=== PATIENT | female | born 1980 | race Caucasian/White ===

== ENCOUNTER → 2018-07-03 18:52 | Outpatient (CLI) | payer OTHER, SELFPAY ==
--- NOTE | 2018-07-03 18:56 | DI.RAD.S_ITS ---
PROCEDURE: XR HAND RT MIN 3V INDICATIONS: hyperextension of 4th and 5th digit TECHNIQUE: 3 views of the hand(s) acquired. COMPARISON: None. FINDINGS: Bones: No fractures or dislocations. Carpal bones are normally aligned. No suspicious bony lesions. Soft tissues: No suspicious soft tissue calcifications. IMPRESSION: No visualized acute fracture or dislocation. However, if clinical concern and/or pain persist, short interval imaging followup in 7-10 days is recommended, as occult injury cannot be definitively excluded. Dictated by: Rosemarie Samuels M.D. on 07/03/2018 at 19:20 Approved by: Rosemarie Samuels M.D. on 07/03/2018 at 19:23
== END ==
PROVIDERS: Visit Provider Physician Assistant
DX: M79.644 Pain in right finger(s) (principal)
CPT/HCPCS: 73130

== ENCOUNTER → 2018-08-14 11:35 | Outpatient (CLI) | payer OTHER, SELFPAY | PROVIDERS: Visit Provider Physician Assistant | DX: J02.9 Acute pharyngitis, unspecified (principal) | CPT/HCPCS: 87070 ==

== ENCOUNTER 2018-10-23 12:20 | Day surgery (SDC) | payer OTHER, SELFPAY ==
--- NOTE | 2018-10-23 | PATH_ITS ---
[facility] Accession Number: [id number] . 01 Material submitted: . PART A: CECAL POLYP PART B: HEPATIC FLEXURE POLYP PART C: TRANSVERSE POLYP @ 60CM . 01 Clinical history: . C: TRANSVERSE POLYP @60CM X2 . 02 Diagnosis: A. Cecum, Polyp, Biopsy: Tubular adenoma. . B. Hepatic Flexure, Polyp, Biopsy: Sessile serrated adenoma. . C. Tranverse Colon, Polyp at 60 cm, Biopsy: Inflammatory polyp in 1 of 2 fragments. Benign lymphoid aggregate in 1 fragment. MRV/10/27/2018 . 02 Electronically signed: . Coreen Joy MD, Pathologist NPI- [id number] . 01 Gross description: . Part A: CECAL POLYP: Received in formalin are multiple fragment(s) of lorenzana, soft tissue measuring 0.7 x 0.4 x 0.2 cm in aggregate submitted entirely in 1 cassette(s) Part B: HEPATIC FLEXURE POLYP: Received in formalin are multiple fragment(s) of lorenzana, soft tissue measuring 0.5 x 0.3 x 0.2 cm in aggregate submitted entirely in 1 cassette(s) Part C: TRANSVERSE POLYP @ 60CM: Received in formalin are multiple fragment(s) of lorenzana, soft tissue measuring 0.9 x 0.6 x 0.3 cm in aggregate submitted entirely in 1 cassette(s) /CKI /CKI . 02 Pathologist provided ICD-10: D12.0, D12.3 . 02 CPT . 706257, 600290, [id number] Performed at: [address] [facility], [place], [place] [id number] MD Ismael Whitaker MD Phone: [phone] Performed at: 02 [facility] [place] [address] [place] [id number] MD Coreen Joy MD Phone: [phone]
--- NOTE | 2018-10-23 13:36 | SUR.PREOP ---
PT STATED SHE HAS BEEN DRINKING WATER ALL MORNING AND WAS DRINKING ON WAY TO HOSP. DR MARADIAGA NOTIFIED AND IN TO SPEAK WITH PT, WE WILL DELAY PRCEDURE TILL END OF DAY, PT IS AGREEABLE TO THIS, SHE HAS INFORMED HER AND SHE IS WAITING IN PRE OP.
[2018-10-23 13:39] VITALS: BP 102/70; PULSE 72; RESP 16; TEMP 36.7; O2SAT 100; BMI 32.1
--- NOTE | 2018-10-23 16:59 | PM.PREOP ---
Pre-operative Note Interval Note History & Physical reviewed/Exam performed by Physician: Yes Changes to H&P: No H&P completed within 30 days and has changed as indicated here:: Patient seen and examined in the preoperative area. History physical examination from September 30, 2018 has not changed. Proceed with colonoscopy today as planned. ASA Class (for procedural sedation): I
[2018-10-23] MEDS: MIDAZOLAM 5 MG/5 ML VIAL IV (17:30)
--- NOTE | 2018-10-23 17:30 | P.OP.ENDO_ITS ---
Operative Date/Time/Diagnoses Date of procedure: 10/23/18 Time of procedure: 17:28 Pre-op diagnosis: Rectal bleeding Post-op diagnosis: other (Multiple colon polyps with otherwise normal colon and rectum) Procedure & Clinicians Study performed: 1. Sedation per surgeon 2. Colonoscopy with hot snare polypectomy and cold forceps polypectomies Same procedure as scheduled: Yes Indications: 38-year-old female who presented with rectal bleeding. She was recommended undergo colonoscopy. Surgeon: Nithin Csaiano Procedure Notes SCOAP/Timeout: Yes Procedure in detail: After obtaining informed consent, the patient was brought to the GI suite and placed in the left lateral decubitus position on the examination table. After placement of appropriate monitors, the patient was given incremental doses of Versed and Fentanyl until an appropriate level of sedation was achieved. A time out was held per SCOAP protocol. A digital rectal examination was performed and did not reveal any masses or obstructing lesions. The colonoscope was gently passed into the patient's anus and the entire colon navigated to the level of the cecum with minimal difficulty. Once in the cecum, the scope was withdrawn being sure to go before and beyond all mucosal folds and prominences and get an excellent examination. The findings are noted above. At the level of the rectal vault, the scope was retroflexed and the internal anal canal was examined. The scope was straightened and air aspirated from the colon. The instrument was removed from the patient's body and the procedure was concluded. The patient was allowed to awaken from sedation without difficulty and taken to the post-anesthesia care unit in good condition. Scope withdrawal time: 16:07 min Sedation minutes: 29 Findings: polyp and other findings (Otherwise normal colon and rectum) Specimen(s): other (1. Cecal polyp 2. Hepatic flexure polyp 3. Transverse c olon polyp x2 at 60 cm) Complications: none Recommendations: Colonscopy in 5 years, High fiber diet and Will call with biopsy results Plan for aftercare: 1. Discharge home Follow up: as needed Disposition: PACU
[2018-10-23 17:31] VITALS: BP 125/85; PULSE 81; RESP 12; TEMP 36.7; O2SAT 99
[2018-10-23] MEDS: fentaNYL 250 MCG/5 ML INJ IV (17:31)
[2018-10-23 17:36] VITALS: BP 102/67; PULSE 74; RESP 16; O2SAT 97
[2018-10-23] MEDS: SODIUM CHLORIDE 0.9% 1,000 ML 200 ML IV (17:39)
[2018-10-23 17:42] VITALS: BP 104/67; PULSE 83; RESP 13; O2SAT 98
[2018-10-23 17:45] VITALS: BP 119/70; PULSE 76; RESP 16; O2SAT 98
== END 2018-10-23 18:00 | disposition home or self-care (01) ==
PROVIDERS: PCP Family Medicine; Visit Provider Surgery
PROC: 0DJD8ZZ Inspection of Lower Intestinal Tract, Via Natural or Artificial Opening Endoscopic (ICD-10-PCS; CPT 45378; principal; 2018-10-23 14:00)
DX: K62.5 Hemorrhage of anus and rectum (principal); Z87.891 Personal history of nicotine dependence; D12.0 Benign neoplasm of cecum; D12.3 Benign neoplasm of transverse colon
CPT/HCPCS: 45385; 45380; 99152; 99153; J2250; J3010

== ENCOUNTER → 2019-04-15 10:52 | Outpatient (CLI) | payer OTHER, SELFPAY ==
[2019-04-15 12:08] LABS: HEMOLYSIS < 15 (0-50)
[2019-04-15 12:24] LABS: BUN Creatinine Ratio 18.9 (6-22); Blood Urea Nitrogen 17 mg/dL (7-17); Calcium 9.4 mg/dL (8.4-10.2); Carbon Dioxide 28 mmol/L (22-32); Chloride 100 mmol/L (98-107); Creatine Kinase 33 U/L (30-135); Estimated Glomerular Filt Rate > 60.0 mL/min (>60); Glucose 99 mg/dL (70-100); Magnesium 1.9 mg/dL (1.6-2.3); Potassium 4.6 mmol/L (3.4-5.1); Sodium 137 mmol/L (137-145)
[2019-04-15 12:25] LABS: C-Reactive Protein Quant < 0.5 mg/dL (<1.0)
[2019-04-15 13:15] LABS: Erythrocyte Sedimentation Rate 5 MM/HR (0-20)
[2019-04-15 14:00] LABS: Folate > 20.0 ng/mL (2.76-20.0); Vitamin B12 640 pg/mL (239-931)
== END ==
PROVIDERS: PCP Family Medicine; Visit Provider Family Medicine
DX: R41.3 Other amnesia (principal); R25.2 Cramp and spasm
CPT/HCPCS: 36415; 80048; 82550; 82607; 82746; 83735; 84443; 85651; 86140